=== PATIENT | female | born 1950 | race Caucasian/White ===

== ENCOUNTER 2019-09-29 10:05 | Outpatient (CLI) | payer OTHER, SELFPAY ==
[2019-09-29 18:39] LABS: SARS-CoV-2 RNA PCR Negative
== END 2019-09-29 10:06 ==
PROVIDERS: PCP Internal Medicine; Visit Provider Internal Medicine Gastroenterology
DX: Z01.812 Encounter for preprocedural laboratory examination (principal); Z11.59 Encounter for screening for other viral diseases
CPT/HCPCS: 87635; C9803; U0003

== ENCOUNTER 2019-10-01 00:35 | Day surgery (SDC) | payer OTHER, SELFPAY ==
[2019-09-23 12:56] VITALS: BMI 28.8
[2019-10-01 06:51] VITALS: BMI 29.2
--- NOTE | 2019-10-01 07:07 | P.PNAN_ITS ---
Anes - Initial Pre Proc Eval Procedure: Operation Date: 10/01/19 08:00 Proposed Procedures p Colonoscopy - Chirag Schaefer MD Date/Time: 10/01/19 07:07 Surgeon: Chirag Schaefer MD Pre Op Diagnosis: ulcerative colitis Patient Data Age: 68 Gender: F Height: 1.63 m Weight: 77.3 kg Allergies Allergy/AdvReac Type Severity Reaction Status Date / Time metronidazole Allergy Mild HIVES Verified 10/01/19 06:50 Home Medications Medication Instructions Recorded Confirmed Type hydroxychloroquine 200 mg PO DAILY 09/23/19 09/23/19 History levothyroxine 125 mcg PO DAILY 09/23/19 09/23/19 History Patient hx anesthesia problems: none Family hx anesthesia problems: none [facility] Past Medical History Medical History (Updated 10/01/19 @ 07:08 by Enoch Vargas MD) Hypothyroidism Overweight (BMI 25.0-29.9) Anes - Eval Final PreProcedure Day of Procedure 10/01/19 07:07 Patient weight: overweight Heart: regular rate and rhythm Lungs: clear to auscultation and normal air movement Airway: Mallampati scale class II Neurological: alert and oriented Last oral intake: >/= 8 hours ASA classification: II Emergent: no Anesthetic plan: proceed Anesthesia type and monitoring: general GIVS Informed Consent: The patient's anesthetic plan and its attendant risks and benefits were discussed with the patient/family/POA. Questions were solicited and answers provided to the satisfaction of the patient/family/POA.
[2019-10-01] MEDS: LACTATED RINGERS 1,000 ML 150 ML IV CONT (07:08)
--- NOTE | 2019-10-01 08:04 | WPDGICN ---
Assessment and Plan Assessment and plan (1) Ulcerative colitis without complications: Code(s): K51.90 - Ulcerative colitis, unspecified, without complications Status: Acute Assessment and Plan: Patient with a long history of ulcerative colitis. Currently with no symptoms. She has stopped all medications related to this. Has done well over the last 5 years. She presents today for surveillance colonoscopy. GI Consult Note Consult date/time: 10/01/19 08:04 HPI: Lucinda Zarco is a 68 year old female seen in evaluation at the request of Dr Darby. Patient presents for surveillance colonoscopy. Patient has a history of ulcerative colitis. She states she has been on remission for at least 5 years. Currently on no medications. She states her weight appetite bowel movements are normal. She denies abdominal pain. She presents today for surveillance screening colonoscopy. Family history is noncontributory. Past medical history is significant for hypothyroidism. Review of Systems Review of Systems: All systems reviewed & are unremarkable except as noted in HPI and below PMFSH Past Medical History Medical History (Updated 10/01/19 @ 08:07 by Chirag Schaefer MD) Hypothyroidism Overweight (BMI 25.0-29.9) Meds Home Medications and Allergies Home Medications Medication Instructions Recorded Confirmed Type hydroxychloroquine 200 mg PO DAILY 09/23/19 09/23/19 History levothyroxine 125 mcg PO DAILY 09/23/19 09/23/19 History Allergies Allergy/AdvReac Type Severity Reaction Status Date / Time metronidazole Allergy Mild HIVES Verified 10/01/19 06:50 Exam Narrative: Exam Narrative: Physical exam reveals patient to be alert. Vital signs stable. HEENT exam unremarkable. Lungs are clear to auscultation and percussion. Heart is without murmur or extra sounds. Abdominal exam bowel sounds are present soft nontender with no organomegaly. Digital external rectal exam normal.
[2019-10-01 08:46] VITALS: BP 117/73; PULSE 66; RESP 21; O2SAT 97
[2019-10-01 08:56] VITALS: BP 116/75; PULSE 66; RESP 21; O2SAT 99
[2019-10-01 09:06] VITALS: BP 118/90; PULSE 64; RESP 22; O2SAT 99
== END 2019-10-01 09:21 | disposition home or self-care (01) ==
PROVIDERS: PCP Internal Medicine; Visit Provider Internal Medicine Gastroenterology
PROC: 0DJD8ZZ Inspection of Lower Intestinal Tract, Via Natural or Artificial Opening Endoscopic (ICD-10-PCS; CPT 45378; principal; 2019-10-01 08:00)
DX: K51.90 Ulcerative colitis, unspecified, without complications (principal); D12.0 Benign neoplasm of cecum; K51.00 Ulcerative (chronic) pancolitis without complications; K64.8 Other hemorrhoids; E03.9 Hypothyroidism, unspecified; K52.9 Noninfective gastroenteritis and colitis, unspecified
CPT/HCPCS: 45385; 45380; 87635; 88305; C9803; J2704; J7120; U0003

== ENCOUNTER 2023-01-30 00:24 | Day surgery (SDC) | payer MEDICARE, SELFPAY ==
[2023-01-20 10:55] VITALS: BMI 30.6
--- NOTE | 2023-01-28 09:10 | SUR.PREOP ---
Patient called regarding upcoming procedure. Reviewed preop instructions, appointment times, and procedure prep.
[2023-01-30 11:51] VITALS: BP 143/74; PULSE 73; RESP 16; TEMP 36.4; O2SAT 98; BMI 30.9
[2023-01-30] MEDS: LACTATED RINGERS 1,000 ML 150 ML IV CONT (12:05)
--- NOTE | 2023-01-30 12:09 | P.PNAN_ITS ---
Anes - Initial Pre Proc Eval Procedure: Operation Date: 01/30/23 13:00 Proposed Procedures p Esophagogastroduodenoscopy & Colonoscopy - Chirag Schaefer MD Date/Time: 01/30/23 12:09 Surgeon: Chirag Schaefer MD Pre Op Diagnosis: Hx colon polyps,GERD Patient Data Age: 72 Gender: F Height: 1.63 m Weight: 81.6 kg Last Vital Signs Temp 36.4 C 01/30/23 11:51 Pulse 73 01/30/23 11:51 Resp 16 01/30/23 11:51 BP 143/74 H 01/30/23 11:51 Pulse Ox 98 01/30/23 11:51 O2 Del Method Room Air 01/30/23 11:51 Allergies Allergy/AdvReac Type Severity Reaction Status Date / Time metronidazole Allergy Mild HIVES Verified 01/30/23 11:48 Home Medications Medication Instructions Recorded Confirmed Type hydroxychloroquine 200 mg tablet 200 mg PO DAILY 09/23/19 01/30/23 History levothyroxine 125 mcg tablet 112 mcg PO DAILY 09/23/19 01/30/23 History Patient hx anesthesia problems: none Family hx anesthesia problems: none Results Review: All pre-operative results and documents have been reviewed as part of the pre- operative evaluation. [facility] Past Medical History Medical History Hypothyroidism Overweight (BMI 25.0-29.9) Surgical History Surgical History H/O colonoscopy Social History Social History Smoking status: Never smoker Alcohol intake: current Drinks per week: 5 Substance use type: does not use Anes - Eval Final PreProcedure Day of Procedure 01/30/23 12:09 Patient weight: obese Heart: regular rate and rhythm Lungs: clear to auscultation Airway: Mallampati scale class II Neurological: alert and oriented Last oral intake: >/= 8 hours ASA classification: II Emergent: no Anesthetic plan: proceed Anesthesia type and monitoring: general GIVS and standard monitoring Results Review: All pre-operative results and documents have been reviewed as part of the pre- operative evaluation. Informed Consent: The patient's anesthetic plan and its attendant risks and benefits were discussed with the patient/family/POA. Questions were solicited and answers provided to the satisfaction of the patient/family/POA.
--- NOTE | 2023-01-30 12:20 | PM.HPGS ---
History of Present Illness History of Present Illness Consent: Risks, benefits, and alternatives have been discussed and questions answered. Patient agrees to proceed with procedure. Chief complaint: Hx colon polyps,GERD Narrative: Lucinda Zarco is a 72 year old female Presents for colonoscopy and EGD. Patient has a history of ulcerative colitis. Currently in clinical remission. She takes no medications. Previously felt to have pancolitis that was in endoscopic remission at time of colonoscopy 3 years ago. Colonoscopy in 2019 also revealed several benign cecal adenomas. Patient presents today for follow-up because of history of polyps as well as her ulcerative colitis. Additionally patient has complaints of heartburn. This appears to be rather persistent. She takes Pepcid intermittently as well as occasional omeprazole but this fails to totally eliminate her symptoms. She does only take these medications on a p.r.n. basis. Patient denies any dysphagia. She denies any bleeding or weight loss. EGD is requested today. Review of Systems Review of Systems: Review of systems noncontributory. [facility] Past Medical History Medical History (Updated 01/30/23 @ 12:24 by Chriag Schaefer MD) Hypothyroidism Overweight (BMI 25.0-29.9) Surgical History Surgical History H/O colonoscopy Social History Social History Smoking status: Never smoker Alcohol intake: current Drinks per week: 5 Substance use type: does not use Meds Home Medications and Allergies Home Medications Medication Instructions Recorded Confirmed Type hydroxychloroquine 200 mg tablet 200 mg PO DAILY 09/23/19 01/30/23 History levothyroxine 125 mcg tablet 112 mcg PO DAILY 09/23/19 01/30/23 History Allergies Allergy/AdvReac Type Severity Reaction Status Date / Time metronidazole Allergy Mild HIVES Verified 01/30/23 11:48 Vital Signs Vital Signs - 24 hr 01/30/23 11:51 Temperature 97.6 F Pulse Rate 73 Respiratory Rate 16 Blood Pressure 143/74 H Pulse Oximetry 98 Oxygen Delivery Room Air Exam Narrative: Physical exam reveals patient to be alert. Vital signs stable. HEENT exam is unremarkable. Patient is anicteric. Lungs are clear to auscultation and percussion. Heart is without murmur or extra sounds. Abdomen bowel sounds are present soft nontender with no hepatosplenomegaly. Digital external rectal exam normal. Assessment and Plan Assessment and plan (1) Ulcerative colitis without complications: Code(s): K51.90 - Ulcerative colitis, unspecified, without complications Status: Acute Assessment and Plan: Patient with a history of ulcerative pancolitis. Currently felt to be in remission. Currently on no medications. Plan for surveillance colonoscopy now consider this at intervals in the future. (2) GERD (gastroesophageal reflux disease): Code(s): K21.9 - Gastro-esophageal reflux disease without esophagitis Status: Acute Assessment and Plan: Patient with ongoing heartburn occurs frequently. She takes intermittent Prilosec without relief of symptoms. Plan for EGD to assess more thoroughly. (3) History of colon polyps: Code(s): Z86.010 - Personal history of colonic polyps Status: Acute Assessment and Plan: Patient has a history of several cecal colon polyps identified removed at time of colonoscopy in 2020. Plan for intermittent surveillance colonoscopies.
--- NOTE | 2023-01-30 13:16 | SUR.OPER ---
EGD START 1253, END 1255 COLONOSCOPY START 1301, END 1314
[2023-01-30 13:22] VITALS: BP 125/69; PULSE 84; RESP 22; O2SAT 96
[2023-01-30 13:32] VITALS: BP 125/78; PULSE 78; RESP 17; O2SAT 97
[2023-01-30 13:42] VITALS: BP 130/78; PULSE 73; RESP 24; O2SAT 96
== END 2023-01-30 13:52 | disposition home or self-care (01) ==
PROVIDERS: PCP Internal Medicine; Visit Provider Internal Medicine Gastroenterology
PROC: 0DJ08ZZ Inspection of Upper Intestinal Tract, Via Natural or Artificial Opening Endoscopic (ICD-10-PCS; CPT 43235; principal; 2023-01-30 13:00)
DX: K51.00 Ulcerative (chronic) pancolitis without complications (principal); K57.30 Diverticulosis of large intestine without perforation or abscess without bleeding; K64.8 Other hemorrhoids; Z86.010 Personal history of colon polyps; K21.9 Gastro-esophageal reflux disease without esophagitis; K22.10 Ulcer of esophagus without bleeding; K44.9 Diaphragmatic hernia without obstruction or gangrene; E03.9 Hypothyroidism, unspecified; E66.9 Obesity, unspecified; Z68.30 Body mass index [BMI] 30.0-30.9, adult
CPT/HCPCS: 43235; 45380; 88305; J2704; J7120